=== PATIENT | male | born 1980 | race Hispanic/Latino ===

== ENCOUNTER 2021-02-09 13:24 | Emergency (ER) | payer OTHER ==
[~2021-02-09] VITALS: Ht 160 cm; Wt 83.9 kg
[2021-02-09 13:25] VITALS: BP 125/74
== END 2021-02-09 17:27 | disposition left against medical advice (07) ==
LOC: EDH 13:24
DX: R06.02 Shortness of breath (principal); Z53.21 Procedure and treatment not carried out due to patient leaving prior to being seen by health care provider